=== PATIENT | female | born 1965 | race Caucasian/White ===

== ENCOUNTER 2017-12-23 14:04 | Emergency (ER) | payer OTHER ==
[2017-12-23 14:47] LABS: ABS Basophils 0.1 10^3/ul (0-0.2); ABS Eosinophils 0.1 10^3/ul (0-0.6); ABS Lymphocytes 1.7 10^3/ul (1.0-4.8); ABS Monocytes 0.5 10^3/ul (0-0.8); ABS Neutrophils 3.8 10^3/ul (1.5-7.7); ABS Nucleated RBC 0 10^3/ul; Hematocrit 37 % (35-47); Hemoglobin 13.2 g/dl (12.0-16.0); Lymphocyte % 27.7 % (25-47); Mean Corpuscular HGB Conc 35 g/dl (31-36); Mean Corpuscular Hemoglobin 32 pg (27-31); Mean Corpuscular Volume 92 fL (80-97); Mean Platelet Volume 6.7 um3 (7.4-10.4); Nucleated Red Blood Cells % 0.1; Platelet Count 175 10^3/ul (150-450); Red Blood Count 4.07 10^6/ul (4.00-5.40); Red Cell Distribution Width 14 % (10.5-15); White Blood Count 6.1 10^3/ul (3.5-10.8)
[2017-12-23 14:56] LABS: EGFR Non-African American 108.7 (>60)
[2017-12-23 15:20] LABS: Urine Appearance Clear; Urine Blood 1+ (Negative); Urine Color Straw; Urine Ketones Negative (Negative); Urine Protein Negative (Negative); Urine Specific Gravity 1.002 (1.010-1.030); Urine Urobilinogen Negative (Negative)
[2017-12-23] MEDS ORDERED: LORazepam TAB(*) 1 MG PO ONE ×2 (18:13→23:37)
--- NOTE | 2017-12-23 23:32 | ED ---
Darline Falcon Rebecca, scribed for Gareth Reynoso MD on 12/23/17 at 2328 . Progress - Progress Note Progress Note: Pt was signed out by Dr. Franks, pending dispo, awaiting MHE. Course/Dx - Course Course Of Treatment: Pt was signed out by Dr. Franks, pending dispo, awaiting MHE. Upon completion of MHE and consultation with Dr. Coleman, it has been determined that the pt will be D/C to home with Dx of adjustment disorder. - Diagnoses Provider Diagnoses: Adjustment disorder Discharge - Sign-Out/Discharge Documenting (check all that apply): Discharge/Admit/Transfer - Discharge, Receiving Sign-Out Receiving patient FROM: Tamir Franks - Discharge Plan Condition: Stable Disposition: HOME Referrals: No Primary Care Phys,NOPCP [Primary Care Provider] - The documentation as recorded by the Darline forrest Rebecca accurately reflects the service I personally performed and the decisions made by Edgardo carr Richard, MD.
[2017-12-24 00:07] VITALS: BP 158/114
--- NOTE | 2017-12-24 15:45 | ED ---
Victorino Falcon Angela, scribed for Tamir Franks MD on 12/23/17 at 1427 . Psychiatric Complaint - HPI Summary HPI Summary: This pt is a 52 y/o female presenting to [facility] by police officers on a 9.45 for increased depression. Pt reports she was at [facility] and they sent her to the ED for an evaluation. Pt notes she was in rehab for alcohol abuse a couple of weeks ago but she started drinking again. She states her last alcoholic drink was today, she had 2-3 beers. Pt has had alcohol withdrawal in the past but denies seizures. Denies SI or HI thoughts/plan. Pt notes she has family around but "they are sick of everything." She lives alone. Pt states "I don't like to be outside my house, I want to go home." She is also concerned for her cats and dogs at home and would like to go home to be with them. She has never been hospitalized for mental health before, only for alcohol abuse. Pt has had prior suicide attempt, when she took 2 extra pills to help her sleep. PMHx includes depression, bipolar disorder. Pt confirms she is taking her anti- depressive medications, except for gabapentin. She states she stopped taking gabapentin because it made her "very spacey." - History Of Current Complaint Chief Complaint: EDMentalHealth Time Seen by Provider: 12/23/17 14:17 Hx Obtained From: Patient Onset/Duration: Lasting Days, Still Present Timing: Days Severity Currently: Moderate Character: Depressed Aggravating Factor(s): Alcohol Use Alleviating Factor(s): Nothing Related History: Positive For: Admissions Related To Substance Abuse Has Suicidal: Reports: Has Prior Attempt(s). Denies: Thoughts, With A Plan Has Homicidal: Denies: Thoughts, With A Plan - Allergies/Home Medications Allergies/Adverse Reactions: Allergies Allergy/AdvReac Type Severity Reaction Status Date / Time No Known Allergies Allergy Verified 12/23/17 14:11 Home Medications: Home Medications Gabapentin CAP(*) [Neurontin 300 CAP(*)] 300 mg PO TID 12/23/17 [History Confirmed 12/23/17] Sertraline* [Zoloft*] 100 mg PO DAILY 12/23/17 [History Confirmed 12/23/17] busPIRone TAB* [Buspar TAB *] 15 mg PO BID 12/23/17 [History Confirmed 12/23/17] chlordiazePOXIDE CAP* [Librium CAP*] 0 mg PO DAILY 12/23/17 [History Confirmed 12/23/17] hydrOXYzine HCL TAB* [Atarax 25 MG TAB*] 25 mg PO Q4H PRN 12/23/17 [History Confirmed 12/23/17] PMH/Surg Hx/FS Hx/Imm Hx Endocrine/Hematology History: Denies: Hx Diabetes Cardiovascular History: Denies: Hx Hypertension Psychiatric History: Reports: Hx Depression, Hx Bipolar Disorder Infectious Disease History: No Infectious Disease History: Denies: Traveled Outside the [place] in Last 30 Days - Social History Lives: Alone Alcohol Use: Daily Substance Use Type: Reports: None Smoking Status (MU): Never Smoked Tobacco Review of Systems Negative: Fever, Chills Psychological: Other - tearful Positive: Depressed. Negative: Other - SI or HI thoughts/plan All Other Systems Reviewed And Are Negative: Yes Physical Exam - Summary Physical Exam Summary: GENERAL: Patient is a well developed and nourished female who is lying comfortable in the stretcher. Patient is not in any acute respiratory distress. HEAD AND FACE: Normocephalic EYES: PERRLA, EOMI x 2. EARS: Hearing grossly intact. MOUTH: Oropharynx within normal limits. NECK: Supple, trachea is midline, no adenopathy, no JVD, no carotid bruit. CHEST: Symmetric, no tenderness at palpation LUNGS: Clear to auscultation bilaterally. No wheezing or crackles. CVS: Regular rate and rhythm, S1 and S2 present, no murmurs or gallops appreciated. ABDOMEN: Soft, non-tender. Bowel sounds are normal. No abdominal abnormal pulsations. EXTREMITIES: Full ROM in all major joints, no edema, no cyanosis or clubbing. NEURO: Alert and oriented x 3. No acute neurological deficits. Speech is normal and follows commands. SKIN: Dry and warm PSYCH: sad affect, linear thought process in content. Denies SI or HI. Triage Information Reviewed: Yes Vital Signs On Initial Exam: Initial Vitals Temp Pulse Resp BP Pulse Ox 99 F 89 19 155/89 98 12/23/17 14:08 12/23/17 14:08 12/23/17 14:08 12/23/17 14:08 12/23/17 14:08 Vital Signs Reviewed: Yes Diagnostics - Vital Signs Vital Signs Temp Pulse Resp BP Pulse Ox 12/23/17 14:08 99 F 89 19 155/89 98 - Laboratory Result Diagrams: 12/23/17 14:31 12/23/17 14:31 Lab Statement: Any lab studies that have been ordered have been reviewed, and results considered in the medical decision making process. Course/Dx - Course Assessment/Plan: Toxicology screen shows positive benzodiazepines and serum alcohol of 208. Pt is medically cleared. She is waiting for a mental health evaluation. At this point MHE is still pending. Pt will be signed out to Dr. Reynoso, pending disposition, awaiting MHE. - Differential Dx/Clinical Impression Provider Diagnosis: Depression Discharge - Sign-Out/Discharge Documenting (check all that apply): Sign-Out Patient Signing out patient TO: Gareth Reynoso - pending dispo, awaiting MHE - Discharge Plan Condition: Stable Referrals: No Primary Care Phys,NOPCP [Primary Care Provider] - The documentation as recorded by the Victorino forrest Angela accurately reflects the service I personally performed and the decisions made by me, Tamir Franks MD.
== END 2017-12-24 02:03 | disposition home or self-care (01) ==
LOC: ED 14:04
DX: F32.9 Major depressive disorder, single episode, unspecified (principal); F43.20 Adjustment disorder, unspecified
CPT/HCPCS: 36415; 80053; 80307; 80320; 80329; 81003; 81015; 84443; 85025; 99284; A9270-GY; G0480